=== PATIENT | male | born 1945 | race Hispanic/Latino ===

== ENCOUNTER 2018-12-09 07:06 | Outpatient (CLI) | payer MEDICARE, BC | END 2018-12-09 07:07 | disposition home or self-care (01) | LOC: CARDIO 07:06 | DX: I25.10 Atherosclerotic heart disease of native coronary artery without angina pectoris (principal) ==

== ENCOUNTER 2018-12-21 15:27 | Outpatient (CLI) | payer MEDICARE, BC | END 2018-12-21 15:28 | disposition home or self-care (01) | LOC: LAB 15:27 ==